=== PATIENT | male | born 1990 | race Caucasian/White ===

== ENCOUNTER 2018-09-25 09:48 | Emergency (ER) | payer OTHER ==
[~2018-09-25] VITALS: Ht 167.6 cm; Wt 60.7 kg
[2018-09-25] MEDS ORDERED: NS 1,000 ML IV ONE (10:45)
[2018-09-25] MEDS ORDERED: ONDANSETRON 4 MG ORAL DISINTEGRATING TAB (Q0162 PER 1MG) PO ONE (10:45)
[2018-09-25 10:57] LABS: BASO % 0.5 % (0.0-1.0); EOS % 0.2 % (0.0-3.0); HEMATOCRIT 41.3 % (42.0-52.0); HEMOGLOBIN 14.2 g/dl (13.5-17.5); LYMPH # 1.3 10^3/uL (1.5-6.5); LYMPH % 22.4 % (24.0-44.0); MEAN CORPUSCULAR HEMOGLOBIN 29.6 pg (27.0-33.0); MEAN CORPUSCULAR HGB CONC 34.4 g/dl (32.0-36.5); MEAN CORPUSCULAR VOLUME 86.2 fl (80.0-96.0); MONO # 0.6 10^3/uL (0.0-0.8); MONO % 9.5 % (0.0-5.0); NEUTROPHILS % 67.1 % (36.0-66.0); PLATELET COUNT, AUTOMATED 122 10^3/uL (150-450); RED BLOOD COUNT 4.79 10^6/uL (4.30-6.10)
[2018-09-25] MEDS ORDERED: KETOROLAC 30 MG/ML VIAL (J1885) IV ONE (11:00)
[2018-09-25 11:41] LABS: ALBUMIN 4.4 GM/DL (3.2-5.2); ALT/SGPT 18 U/L (12-78); AMYLASE 72 U/L (25-115); BILIRUBIN,DIRECT 0.2 MG/DL (0.0-0.2); BILIRUBIN,TOTAL 0.6 MG/DL (0.2-1.0); BLOOD UREA NITROGEN 11 MG/DL (7-18); CALCIUM LEVEL 9.1 MG/DL (8.5-10.1); CARBON DIOXIDE LEVEL 28 MEQ/L (21-32); CHLORIDE LEVEL 107 MEQ/L (98-107); CREATININE FOR GFR 0.79 MG/DL (0.70-1.30); GLOMERULAR FILTRATION RATE > 60.0 (>60); GLUCOSE, FASTING 85 MG/DL (70-100); LIPASE 322 U/L (73-393); POTASSIUM SERUM 3.9 MEQ/L (3.5-5.1); SODIUM LEVEL 144 MEQ/L (136-145); TOTAL PROTEIN 7.5 GM/DL (6.4-8.2)
[2018-09-25] MEDS ORDERED: ISOVUE-370 76% 100ML VIAL (Q9967) As Ordered ONE (11:50)
--- NOTE | 2018-09-25 12:36 | REP ---
CT of the abdomen pelvis with IV contrast, without bowel contrast: There is a history of pancreatitis. There are no comparison studies. The visualized lung morton are unremarkable. The hepatic parenchyma and gallbladder are unremarkable. There is a large lesser sac cyst measuring up to 12 mm in diameter. This could be a pancreatic cyst, pancreatic pseudocyst or a cyst arising from the gastric wall or duodenal loop wall. The spleen is normal size and unremarkable. The adrenals, kidneys and abdominal aorta are unremarkable. There is no retroperitoneal or mesenteric adenopathy. Pelvis: There is a small volume of ascites. The pelvic bowel loops are unremarkable. The appendix is not identified, however, there is no pericecal inflammation or abscess. The terminal ileum is unremarkable. 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 Otherwise, negative CT of the abdomen pelvis Electronically Signed by Rico Li MD 09/25/2018 12:27 P
[2018-09-25 16:57] VITALS: BP 128/67
== END 2018-09-25 16:59 | disposition short-term general hospital (02) ==
LOC: M ED 09:48
DX: K86.1 Other chronic pancreatitis (principal); K86.3 Pseudocyst of pancreas; Z98.890 Other specified postprocedural states
CPT/HCPCS: 74177; 80048; 80076; 81001; 82150; 83690; 85025; 96374; 99284; J1885; Q0162; Q9967